=== PATIENT | female | born 1965 | race Caucasian/White ===

== ENCOUNTER 2021-03-16 07:26 | Inpatient (IN) | payer OTHER ==
[~2021-03-16] VITALS: Ht 157.5 cm; Wt 60.3 kg
--- NOTE | 2021-03-16 07:30 | NUR ---
BIB [facility] FOR C/O WEAKNESS, COUGH, CHILLS AND FEVER. STATES SHE IS UNVACCINATED. PLACED IN ROOM 3. PLACED ON A DIGITAL STRATEGY SPECIALIST. VSS, SPO2 >98% ON RA.
[2021-03-16 08:04] LABS: HEMATOCRIT 37.4 % (31.2-41.9); MEAN CORPUSCULAR HEMOGLOBIN 26.6 uug (24.7-32.8); MEAN CORPUSCULAR VOLUME 80.2 fL (75.5-95.3); PLATELET COUNT (AUTO) 220 K/uL (179-408)
[2021-03-16 08:06] LABS: CREATININE 0.9 mg/dL (0.6-1.3); POTASSIUM 3.6 mmol/L (3.5-5.1)
[2021-03-16 08:14] LABS: ABG BASE EXCESS 0.6 mmol/L; ABG HCO3 24.6 mmol/L; ABG PCO2 37.2 mmHg (35.0-45.0); ABG PH 7.438 (7.350-7.450); ABG PO2 56.8 mmHg (75.0-100.0); ABG SITE RIGHT RADIAL; ABG TOTAL HEMOGLOBIN 12.7 G/dL (12.0-16.0); COHb 1.5 % (0.5-1.5); O2Hb 91.2 % (94.0-97.0)
[2021-03-16 08:19] LABS: BILIRUBIN,TOTAL 0.3 mg/dL (0.2-1.0)
[2021-03-16] MEDS ORDERED: DEXAMETHASONE SOD PHOSPHATE 4 MG INJ IV ONE (09:00)
[2021-03-16] MEDS ORDERED: AZITHROMYCIN IV 500 MG in IV DEXTROSE 5% 250 ML IV ONE (09:00)
[2021-03-16] MEDS ORDERED: CEFTRIAXONE 1 G in IV DEXTROSE 5% 50 ML IV ONE (09:00)
[2021-03-16] MEDS ORDERED: DEXAMETHASONE SOD PHOSPHATE 4 MG INJ ONE (09:19)
[2021-03-16] MEDS ORDERED: AZITHROMYCIN 500MG/ D5W 250ML IVPB **ER PYXIS ONLY IV ONE (09:20)
[2021-03-16] MEDS ORDERED: CEFTRIAXONE /D5W 50ML IVPB **ER PYXIS IV ONE (09:20)
--- NOTE | 2021-03-16 11:40 | NUR ---
Pt taken to CT. Pt to be taken from CT to 324 after. Report called to Linda approx 111.
[2021-03-16 12:15] VITALS: BP 108/51
--- NOTE | 2021-03-16 12:15 | NUR ---
Received patient from ED via [employer] Patient alert and oriented x4. On 2L O2 via NC, saturating 98%. NSR on library monitor. Patient denies pain/ discomfort. Oriented patient to unit and room. Bed alarm on. Call light within reach. Will continue to monitor.
[2021-03-16] MEDS ORDERED: HYDROCODONE/APAP 5-325MG TABLET PO PRN (12:30)
[2021-03-16] MEDS ORDERED: ZOLPIDEM 5 MG TABLET PO PRN (12:30)
[2021-03-16] MEDS ORDERED: ALBUTEROL SULFATE 8 GM HFA.AER.AD IH PRN (12:30)
[2021-03-16] MEDS ORDERED: ONDANSETRON 4 MG/2 ML VIAL IV PRN (12:30)
[2021-03-16] MEDS ORDERED: MAGNESIUM HYDROXIDE 30 ML LIQUID UDC PO PRN (12:30)
[2021-03-16] MEDS: ACETAMINOPHEN 325 MG TABLET PO PRN (13:14)
--- NOTE | 2021-03-16 14:00 | NUR ---
Patient stated she is [employer]. Patient advance directive regarding blood products in chart.
[2021-03-16 16:00] VITALS: BP 111/57
--- NOTE | 2021-03-16 19:20 | NUR ---
Patient AOx4. On 1L O2 via NC. NSR on environmental monitoring specialist. No signs of acute distress. Patient complains of weakness on lower extremities. Patient denies pain/ discomfort. Bed alarm on. Call light within reach. Needs anticipated and met. Will endorse to incoming shift for continuity of care.
[2021-03-16 20:27] VITALS: BP 100/56
[2021-03-16] MEDS: ENOXAPARIN SODIUM 40 MG/0.4 ML DISP.SYRIN SQ SCH (21:36)
--- NOTE | 2021-03-16 23:31 | NUR ---
awake alert and oriented x4 Needs attended. On telemetry patient on sinus rhythm. VSS. Will monitor patient. Continent of bowel and bladder. On 1L nasal cannula, pulse ox 100%. No complaints presented during the shift.
[2021-03-17 00:18] VITALS: BP 119/51
[2021-03-17 04:27] VITALS: BP 125/69
[2021-03-17 05:57] LABS: HEMATOCRIT 37.7 % (31.2-41.9); MEAN CORPUSCULAR HEMOGLOBIN 26.6 uug (24.7-32.8); MEAN CORPUSCULAR VOLUME 79.7 fL (75.5-95.3); PLATELET COUNT (AUTO) 228 K/uL (179-408)
[2021-03-17] MEDS: PANTOPRAZOLE SODIUM 40 MG TABLET.DR PO SCH (06:06)
[2021-03-17 06:33] LABS: BILIRUBIN,TOTAL 0.2 mg/dL (0.2-1.0); CREATININE 0.8 mg/dL (0.6-1.3); MAGNESIUM 2.4 mg/dL (1.8-2.4); PHOSPHOROUS 3.2 mg/dL (2.5-4.9); TOTAL PROTEIN, SERUM 7.6 g/dL (6.4-8.2)
[2021-03-17 07:10] LABS: THYROID STIMULATING HORMONE 0.232 mIU/mL (0.358-3.740)
--- NOTE | 2021-03-17 08:00 | NUR ---
Pt is in no acute distress. Pt denies any c/o pain. titrated pt ON r/a 95%. Call light is within reach.
[2021-03-17] MEDS: DEXAMETHASONE SOD PHOSPHATE 4 MG INJ IV SCH ×2 (09:00→17:31)
[2021-03-17] MEDS: CHOLECALCIFEROL 1,000 UNIT TABLET PO SCH (09:51)
[2021-03-17] MEDS: ASCORBIC ACID 500 MG TABLET PO SCH (09:51)
[2021-03-17] MEDS: ACETAMINOPHEN 325 MG TABLET PO PRN ×2 (09:52→20:22)
[2021-03-17 12:00] VITALS: BP 108/67
--- NOTE | 2021-03-17 14:00 | NUR ---
Pt c/o pain 10 on her coccyx pt stated that she might have fallen on her buttocks when she fell at home. Notified DR Cole x ray ordered. Applied ice and offered norco - pt refuse norco.
[2021-03-17 16:00] VITALS: BP 111/76
--- NOTE | 2021-03-17 18:44 | NUR ---
Dr sylvester notified of result of x ray. Applied ice pack on buttocks. PT denies any c/o pain.
--- NOTE | 2021-03-17 19:30 | NUR ---
RECEIVED PT AWAKE, ALERT AND ORIENTEDX4. PT IN NO ACUTE DISTRESS. IV INTACT. PT ON ROOM AIR . SAFETY AND COMFORT PROVIDED. WILL CONTINUE TO MONITOR.
[2021-03-17 20:00] VITALS: BP 104/48
[2021-03-17] MEDS: ATORVASTATIN 40 MG TABLET PO SCH (20:22)
[2021-03-17] MEDS: ENOXAPARIN SODIUM 40 MG/0.4 ML DISP.SYRIN SQ SCH (22:30)
[2021-03-18] VITALS: BP 101/71
[2021-03-18 04:00] VITALS: BP 116/68
[2021-03-18] MEDS: PANTOPRAZOLE SODIUM 40 MG TABLET.DR PO SCH (06:01)
--- NOTE | 2021-03-18 06:21 | NUR ---
PT SLEPT INTERMITTENTLY. PT IN NO ACUTE DISTRESS. IV INTACT. PT ON SINUS RHYTHM. PRESCRIBED MEDICATION GIVEN AND PT TOLERATED IT WELL. PT ON ROOM AIR. SAFETY AND COMFORT PROVIDED. ALL NEEDS ARE MET. WILL ENDORSE TO INCOMING NURSE FOR CONTINUITY OF CARE.
[2021-03-18 06:24] LABS: HEMATOCRIT 40.3 % (31.2-41.9); MEAN CORPUSCULAR HEMOGLOBIN 26.7 uug (24.7-32.8); MEAN CORPUSCULAR VOLUME 80.7 fL (75.5-95.3); PLATELET COUNT (AUTO) 245 K/uL (179-408)
[2021-03-18 06:52] LABS: CREATININE 0.8 mg/dL (0.6-1.3); MAGNESIUM 2.4 mg/dL (1.8-2.4); PHOSPHOROUS 4.5 mg/dL (2.5-4.9); POTASSIUM 4.1 mmol/L (3.5-5.1)
--- NOTE | 2021-03-18 07:56 | NUR ---
received in bed awake,alert and oriented x4 talking on her phone. no resp distress. denies sob, chest pain, difficulty breathing. didn't sleep much last night. no c/o nausea or vomiting. comfortably on room air spo2 95-96%. safety measures maintained. call light in reach. continue to monitor.
[2021-03-18] MEDS: DEXAMETHASONE SOD PHOSPHATE 4 MG INJ IV SCH (08:32)
[2021-03-18] MEDS: CHOLECALCIFEROL 1,000 UNIT TABLET PO SCH (08:32)
[2021-03-18] MEDS: ASCORBIC ACID 500 MG TABLET PO SCH (08:32)
--- NOTE | 2021-03-18 11:19 | NUR ---
received call from mr. janette mcintosh stated he's the primary healthcare agent for the patient. informed mr. mcintosh i have to verify with the patient and will call him back.
--- NOTE | 2021-03-18 11:55 | NUR ---
Verified with pt that it's ok to give information to [facility]. Pt said yes it's ok.
[2021-03-18 12:00] VITALS: BP 113/59
--- NOTE | 2021-03-18 12:23 | NUR ---
called Ivy mcintosh but went straight to voicemail. left to call me back.
--- NOTE | 2021-03-18 13:32 | NUR ---
pt sitting at edge of bed eating lunch. sr on tele. no acute distress. encouraged to call if she needs help. verbalized understanding. safety measures maintained.
[2021-03-18 16:00] VITALS: BP 106/63
--- NOTE | 2021-03-18 18:34 | NUR ---
pt decided she wants tylenol instead. sandra returned.
[2021-03-18] MEDS: ACETAMINOPHEN 325 MG TABLET PO PRN (18:37)
--- NOTE | 2021-03-18 18:50 | NUR ---
alert and oriented x4. denies sob, chest pain. occasional coughing. no nausea or vomiting reported. no complaints at this time. states she's comfortable. needs attended. call light in reach.
[2021-03-18 20:00] VITALS: BP 129/66
--- NOTE | 2021-03-18 20:00 | NUR ---
PATIENT ALERT ORIENTED NO SOB NO CHEST PAIN, NO COMPLAIN OF PAIN. PATIENT ON TELE MONITOR SINUS RHYTHM, PATIENT ON ROOM AIR SAT 95%, CONT TO MONITOR.
[2021-03-18] MEDS: ATORVASTATIN 40 MG TABLET PO SCH (21:00)
[2021-03-18] MEDS: ENOXAPARIN SODIUM 40 MG/0.4 ML DISP.SYRIN SQ SCH (21:39)
[2021-03-19] VITALS: BP 110/57
[2021-03-19 04:00] VITALS: BP 122/63
[2021-03-19] MEDS: PANTOPRAZOLE SODIUM 40 MG TABLET.DR PO SCH (06:15)
--- NOTE | 2021-03-19 07:03 | NUR ---
PATIENT ALERT ORIENTED, NO SOB NO CHEST PAIN, ON ROOM AIR 99%. PATIENT AFEBRILE NO COMPLAIN OF PAIN, TELE MONITOR SINUS RHYTHM, CONT TO MONITOR.
[2021-03-19] MEDS: ASCORBIC ACID 500 MG TABLET PO SCH (08:44)
[2021-03-19] MEDS: DEXAMETHASONE SOD PHOSPHATE 4 MG INJ IV SCH (08:45)
[2021-03-19 10:38] VITALS: BP 129/72
[2021-03-19] MEDS: CHOLECALCIFEROL 1,000 UNIT TABLET PO SCH (10:45)
--- NOTE | 2021-03-19 14:25 | NUR ---
Patient seen by Dr. Benitez, update given to MD and made aware of an episode of right epistaxis and nausea with no new order at this time.
[2021-03-19 15:35] VITALS: BP 106/63
--- NOTE | 2021-03-19 17:00 | NUR ---
Patient remains alert, oriented x 4, not in any form of distress, on room air. She denies any pain or discomfort at this time. Assisted with her needs promptly. Call light and frequently used items placed within patient's reach. Will continue to monitor.
[2021-03-19] MEDS: ACETAMINOPHEN 325 MG TABLET PO PRN (18:50)
[2021-03-19 20:00] VITALS: BP 103/53
--- NOTE | 2021-03-19 20:11 | NUR ---
received in bed awake,alert and oriented x4 no resp distress. denies sob, chest pain, difficulty breathing.. no c/o nausea or vomiting. comfortably on room air spo2 95-96%. safety measures maintained. call light in reach. continue to monitor.
[2021-03-19] MEDS: ATORVASTATIN 40 MG TABLET PO SCH (20:15)
[2021-03-19] MEDS: ENOXAPARIN SODIUM 40 MG/0.4 ML DISP.SYRIN SQ SCH (20:16)
[2021-03-20] VITALS: BP 106/57
--- NOTE | 2021-03-20 00:57 | NUR ---
PT SLEEPING AT THIS TIME . PT IN NO ACUTE DISTRESS. IV INTACT. PT ON SINUS RHYTHM. PT ON ROOM AIR. SAFETY AND COMFORT PROVIDED. ALL NEEDS ARE MET. CALL LIGHT WITH IN REACH
[2021-03-20 04:00] VITALS: BP 116/65
[2021-03-20] MEDS: PANTOPRAZOLE SODIUM 40 MG TABLET.DR PO SCH (06:05)
[2021-03-20 07:02] LABS: HEMATOCRIT 38.9 % (31.2-41.9); MEAN CORPUSCULAR HEMOGLOBIN 26.6 uug (24.7-32.8); MEAN CORPUSCULAR VOLUME 80.4 fL (75.5-95.3); PLATELET COUNT (AUTO) 252 K/uL (179-408)
[2021-03-20 07:17] LABS: BILIRUBIN,DIRECT 0.1 mg/dL (0.0-0.2); BILIRUBIN,TOTAL 0.2 mg/dL (0.2-1.0); CREATININE 0.8 mg/dL (0.6-1.3); PHOSPHOROUS 3.5 mg/dL (2.5-4.9); TOTAL PROTEIN, SERUM 7.4 g/dL (6.4-8.2)
[2021-03-20] MEDS: CHOLECALCIFEROL 1,000 UNIT TABLET PO SCH (08:27)
[2021-03-20] MEDS: ASCORBIC ACID 500 MG TABLET PO SCH (08:28)
[2021-03-20] MEDS: DEXAMETHASONE SOD PHOSPHATE 4 MG INJ IV SCH (08:28)
[2021-03-20 09:04] VITALS: BP 104/50
[2021-03-20 11:57] VITALS: BP 125/64
[2021-03-20] MEDS ORDERED: CHOL100062 PO (13:47)
[2021-03-20] MEDS ORDERED: ATOR40TA PO (13:47)
--- NOTE | 2021-03-20 15:09 | NUR ---
patient is alert, oriented x4, no sob, resp even nonlabored,skin warm and dry to touch, paitent is ambulatory, room air, no sob, tolerating adls well, no acute distress noted, patient discharging home, teaching provided, patient verbalized understanding of it, belongings are accounted and signed.
[2021-03-20 15:36] VITALS: BP 118/66
--- NOTE | 2021-03-20 18:12 | NUR ---
patient discharged home with her son, with fww, IV removed, patient is in stable condition, alert, oriented x4, no distress noted, patient teaching provided about covid 19 infection and home care, patient verbalized understanding of it.
== END 2021-03-20 17:30 | disposition home or self-care (01) | DRG 720 ==
LOC: ER 07:26 → TELE3 11:31
PROVIDERS: ADMIT Internal Medicine; ATTEND Student in an Organized Health Care Education/Training Program
DX: A41.89 Other specified sepsis (principal); J96.01 Acute respiratory failure with hypoxia; J12.82 Pneumonia due to coronavirus disease 2019; U07.1 COVID-19; G93.40 Encephalopathy, unspecified; S32.2XXA Fracture of coccyx, initial encounter for closed fracture; R73.9 Hyperglycemia, unspecified; E78.00 Pure hypercholesterolemia, unspecified; E78.5 Hyperlipidemia, unspecified; S30.0XXA Contusion of lower back and pelvis, initial encounter; X58.XXXA Exposure to other specified factors, initial encounter; Y93.9 Activity, unspecified; Y92.9 Unspecified place or not applicable
CPT/HCPCS: 36415; 36600; 70030-TC; 70450; 71045; 72220; 83550; 83605; 83615; 83735; 84100; 84443; 85025; 85730; 86140; 87040; 87400; 97161; A4663; G0378; J0456; J0696; J1100; J1650; J2405; J3535; U0003

== ENCOUNTER 2023-09-29 12:34 | Emergency (ER) | payer MEDICAID, OTHER ==
[~2023-09-29] VITALS: Ht 154.9 cm; Wt 59.0 kg
[~2023-09-29 12:34] MED LIST: ATOR40TA PO; CHOL100062 PO
[2023-09-29 13:36] LABS: BASOPHILS % (AUTO) 0.7 % (0.0-2.0); EOSINOPHILS # (AUTO) 0.1 K/uL (0.0-0.7); EOSINOPHILS % (AUTO) 1.6 % (0.0-7.0); HEMATOCRIT 38.4 % (31.2-41.9); HEMOGLOBIN 12.8 g/dL (10.9-14.3); LYMPHOCYTES # (AUTO) 1.7 K/uL (0.8-4.8); LYMPHOCYTES % (AUTO) 39.5 % (20.5-51.5); MEAN CORPUSCULAR HEMOGLOBIN 26.5 uug (24.7-32.8); MEAN CORPUSCULAR HGB CONC 33 g/dL (32.3-35.6); MEAN CORPUSCULAR VOLUME 79.3 fL (75.5-95.3); MONOCYTES # (AUTO) 0.3 K/uL (0.1-1.30); MONOCYTES % (AUTO) 5.9 % (0.0-11.0); NEUTROPHILS # (AUTO) 2.3 K/uL (1.8-8.9); NEUTROPHILS % (AUTO) 52.3 % (38.5-71.5); PLATELET COUNT (AUTO) 224 K/uL (179-408); RED BLOOD CELL COUNT(AUTO) 4.85 MIL/uL (3.63-4.92); RED CELL DISTRIBUTION WIDTH 13.8 % (12.3-17.7); WHITE BLOOD COUNT (AUTO) 4.4 K/uL (3.8-11.8)
[2023-09-29] MEDS ORDERED: ALBUTEROL SULFATE 2.5 MG/3 ML NEBU ONE (13:39)
[2023-09-29] MEDS ORDERED: IPRATROPIUM BROMIDE 0.5 MG/2.5 ML NEBU ONE (13:39)
[2023-09-29 13:40] VITALS: O2SAT 98
[2023-09-29 13:50] LABS: CALCIUM 9.8 mg/dL (8.5-10.1); CARBON DIOXIDE 25 mmol/L (21-32); CHLORIDE 101 mmol/L (98-107); CREATININE 0.8 mg/dL (0.6-1.3); GLUCOSE 89 mg/dL (74-106); POTASSIUM 3.9 mmol/L (3.5-5.1); SODIUM SERUM 137 mmol/L (136-145); UREA NITROGEN, BLOOD 13 mg/dL (7-18)
[2023-09-29] MEDS: IPRATROPIUM BROMIDE 0.5 MG/2.5 ML NEBU NEB ONE (13:51)
[2023-09-29] MEDS: ALBUTEROL SULFATE 2.5 MG/3 ML NEBU NEB ONE (13:51)
[2023-09-29 13:54] LABS: DIFFERENTIAL COMMENT 1
[2023-09-29 13:55] VITALS: O2SAT 99
[2023-09-29 13:59] LABS: ALANINE AMINOTRANSFERASE 28 U/L (14-59); ALBUMIN 3.7 g/dL (3.4-5.0); ALKALINE PHOSPHATASE 63 U/L (50-136); ASPARTATE AMINOTRANSFERASE 47 U/L (15-37); BILIRUBIN,DIRECT 0.1 mg/dL (0.0-0.2); BILIRUBIN,TOTAL 0.4 mg/dL (0.2-1.0); TOTAL PROTEIN, SERUM 8.2 g/dL (6.4-8.2)
[2023-09-29] MEDS ORDERED: DEXAMETHASONE SOD PHOSPHATE 10 MG INJ ONE (14:58)
[2023-09-29] MEDS: DEXAMETHASONE SOD PHOSPHATE 4 MG INJ IV ONE (15:00)
[2023-09-29] MEDS ORDERED: AMOX1TAB16 PO (17:06)
[2023-09-29] MEDS ORDERED: BENZ-38 PO (17:06)
[2023-09-29] MEDS ORDERED: ACET-73 PO (17:06)
[2023-09-29] MEDS ORDERED: PROMETHAZINE-DM (17:06)
[2023-09-29] MEDS ORDERED: ROSU40TA23 PO (17:06)
[2023-09-29] MEDS ORDERED: FERR325T6 PO (17:06)
[2023-09-29] MEDS ORDERED: ALBU8HFA4 (17:06)
[2023-09-29] MEDS ORDERED: ESCI20TA44 PO (17:06)
[2023-09-29] MEDS ORDERED: EZET10TA32 PO (17:06)
[2023-09-29] MEDS ORDERED: ALBU2.5V13 NEB (21:35)
[2023-09-29] MEDS ORDERED: PRED20TA PO (21:35)
[2023-09-29 22:32] VITALS: BP 127/85; TEMP 98.6; O2SAT 99
== END 2023-09-29 22:33 | disposition left against medical advice (07) ==
LOC: ER 12:34
DX: S92.302A Fracture of unspecified metatarsal bone(s), left foot, initial encounter for closed fracture (principal); S09.8XXA Other specified injuries of head, initial encounter; J44.1 Chronic obstructive pulmonary disease with (acute) exacerbation; R55 Syncope and collapse; Z79.899 Other long term (current) drug therapy; Z20.822 Contact with and (suspected) exposure to COVID-19; X58.XXXA Exposure to other specified factors, initial encounter; Y93.89 Activity, other specified; Y92.89 Other specified places as the place of occurrence of the external cause; Y99.8 Other external cause status
CPT/HCPCS: 36415; 70450; 71045; 73630; 83605; 84484; 85025; 85730; 87040; 93005; A4606; A4663; J1100; J3590